=== PATIENT | male | born 1960 | race African-American/Black ===

== ENCOUNTER 2016-08-11 20:38 | Emergency (ER) | payer MEDICARE, MEDICAID ==
[~2016-08-11] VITALS: Ht 170.2 cm; Wt 75.0 kg
[~2016-08-11 20:38] MED LIST: BACL-141 PO; FURO-152 PO; MELO-58 PO; OXTELLAR PO; [UNRECOGNIZED DRUG - CODE] PO
[2016-08-12] MEDS ORDERED: KETOROLAC 60MG/2ML VIAL IM ONE (01:45)
[2016-08-13] MEDS ORDERED: DIPHENHYDRAMINE 50MG CAPSULE PO ONE (20:15)
[2016-08-14 10:00] VITALS: BP 109/72
== END 2016-08-14 10:10 | disposition home or self-care (01) ==
LOC: ER 23:15
DX: S16.1XXA Strain of muscle, fascia and tendon at neck level, initial encounter (principal); S66.911A Strain of unspecified muscle, fascia and tendon at wrist and hand level, right hand, initial encounter; S39.012A Strain of muscle, fascia and tendon of lower back, initial encounter; M25.521 Pain in right elbow; G82.20 Paraplegia, unspecified; M19.90 Unspecified osteoarthritis, unspecified site; F17.210 Nicotine dependence, cigarettes, uncomplicated; Z99.3 Dependence on wheelchair; S34.109S Unspecified injury to unspecified level of lumbar spinal cord, sequela; Z98.1 Arthrodesis status; W05.0XXA Fall from non-moving wheelchair, initial encounter; X93.XXXS Assault by handgun discharge, sequela; Y92.89 Other specified places as the place of occurrence of the external cause
CPT/HCPCS: 71010; 72040; 72070; 72100; 73080; 73110; 96372; 99284; J1885; Q0163

== ENCOUNTER 2016-10-21 01:07 | Inpatient (IN) | payer MEDICARE, MEDICAID ==
[~2016-10-21] VITALS: Ht 170.2 cm; Wt 75.7 kg
[2016-10-21] MEDS ORDERED: SODIUM CHLORIDE 0.9% 1000ML BAG (SEPSIS BOLUS) IV ONE (02:00)
[2016-10-21 02:26] LABS: BASOPHILS % 0.7 % (0.0-2.0); EOSINOPHILS % 4.3 % (0.0-5.0); HEMATOCRIT. 38.3 % (42.0-52.0); HEMOGLOBIN. 12.8 g/dL (14.0-18.0); LYMPHOCYTES % 25.8 % (20.0-50.0); MEAN CORPUSCULAR HEMOGLOBIN 27.8 pg (28.0-32.0); MEAN PLATELET VOLUME 6.2 fl (7.4-10.4); MONOCYTES % 5.5 % (2.0-8.0); NEUTROPHILS % 63.7 % (40.0-76.0); PLATELET 476 x1000/uL (130-400); RED BLOOD CELL COUNT 4.61 mill/uL (4.7-6.1)
[2016-10-21 02:38] LABS: D-DIMER 1.19 mg/L FEU (<0.50); INR 1.1; PARTIAL THROMBOPLASTIN TIME 31.1 sec (24.0-34.0); PROTHROMBIN TIME 11.6 sec
[2016-10-21 02:42] LABS: CARBON DIOXIDE 22 mEq/L (21-32); CHLORIDE 104 mEq/L (98-107); ETHANOL BLOOD 114 mg/dL; TROPONIN I < 0.02 ng/mL (0.00-0.04)
[2016-10-21 04:01] LABS: CLARITY URINE CLEAR (CLEAR); COLOR URINE YELLOW (YELLOW); GLUCOSE URINE NEGATIVE (NEGATIVE); KETONES URINE NEGATIVE (NEGATIVE); LEUKOCYTE ESTERASE URINE TRACE (NEGATIVE); NITRITE URINE NEGATIVE (NEGATIVE); OCCULT BLOOD URINE 1+ (NEGATIVE); PROTEIN URINE NEGATIVE (NEGATIVE); SPECIFIC GRAVITY URINE 1.008 (1.005-1.030); UROBILINOGEN URINE 0.2 E.U./dL (0.2-1.0)
[2016-10-21 04:10] LABS: *AMPHETAMINES SCREEN URINE NEGATIVE (NEGATIVE); *BARBITURATES SCREEN URINE NEGATIVE (NEGATIVE); *BENZODIAZEPINES SCREEN URINE NEGATIVE (NEGATIVE); *COCAINE SCREEN URINE PRESUMTIVE POSITIVE (NEGATIVE); CANNABINOID URINE SCREEN NEGATIVE (NEGATIVE); METHADONE URINE SCREEN NEGATIVE (NEGATIVE); OPIATES URINE SCREEN NEGATIVE (NEGATIVE); PHENCYCLIDINE URINE SCREEN NEGATIVE (NEGATIVE)
[2016-10-21] MEDS ORDERED: IOHEXOL-350 100 ML BOTTLE ONE (06:00)
[2016-10-21] MEDS ORDERED: SODIUM CHLORIDE 0.9% 10ML VIAL ONE (06:00)
[2016-10-21] MEDS ORDERED: LEVOFLOXACIN 750MG PREMIX 150 ML IV ONE (06:30)
[2016-10-21] MEDS ORDERED: ASPIRIN 325MG EC TABLET PO ONE (06:30)
[2016-10-21 09:45] VITALS: BP 114/68
[2016-10-21] MEDS ORDERED: ATOR10TA69 PO (10:07)
[2016-10-21] MEDS ORDERED: DICL100T11 PO (10:09)
[2016-10-21] MEDS ORDERED: OXCA300T31 PO (10:11)
[2016-10-21] MEDS ORDERED: RIBO100T3 PO (10:13)
[2016-10-21] MEDS ORDERED: COLL30OI TP (10:14)
[2016-10-21] MEDS ORDERED: SILV20CR15 TP (10:15)
[2016-10-21] MEDS ORDERED: TAMS0.4C31 PO (10:16)
[2016-10-21] MEDS ORDERED: NICOG BC (10:25)
[2016-10-21] MEDS ORDERED: NICO1PAT15 TP (10:33)
[2016-10-21] MEDS ORDERED: ERTA1VIA2 IV (10:37)
[2016-10-21 12:00] VITALS: BP 117/90
[2016-10-21] MEDS: ENOXAPARIN 40MG/0.4ML SYR SUBCUT SCH (15:03)
[2016-10-21] MEDS ORDERED: DOCUSATE SODIUM 100MG CAPSULE PO PRN (16:00)
[2016-10-21] MEDS ORDERED: IPRATROPIUM/ALBUTEROL 0.5-3(2.5)MG/3ML NEB INH PRN (16:00)
[2016-10-21] MEDS ORDERED: ERTAPENEM SODIUM 1 GM IV SCH (16:00)
[2016-10-21] MEDS ORDERED: CLONIDINE 0.1MG TABLET PO PRN (16:00)
[2016-10-21] MEDS ORDERED: LORAZEPAM 2MG/ML CPJ IV PRN (16:00)
[2016-10-21] MEDS ORDERED: MAGNESIUM/ALUMINUM HYDROXIDE/SIMETHICONE 30ML UDC PO PRN (16:00)
[2016-10-21] MEDS: ATORVASTATIN CALCIUM 10MG TABLET PO SCH (17:32)
[2016-10-21] MEDS: BACLOFEN 10MG TABLET PO SCH (17:32)
[2016-10-21] MEDS: TAMSULOSIN HCL 0.4MG SR CAPSULE PO SCH (17:33)
[2016-10-21] MEDS: FUROSEMIDE 20MG TABLET PO SCH (17:33)
[2016-10-21] MEDS: MEROPENEM 1000MG in NORMAL SALINE 100ML IV SCH (18:20)
[2016-10-21 20:38] VITALS: BP 95/63
[2016-10-21] MEDS ORDERED: ACETAMINOPHEN 650MG/20.3ML UDC PO PRN (21:15)
[2016-10-21] MEDS: ACETAMINOPHEN 325MG TABLET PO PRN (21:35)
[2016-10-21 22:55] LABS: CREATINE KINASE 212 IU/L (39-308)
[2016-10-22 00:02] VITALS: BP 92/59
[2016-10-22] MEDS: MEROPENEM 1000MG in NORMAL SALINE 100ML IV SCH ×2 (01:28→08:56)
[2016-10-22] MEDS: ACETAMINOPHEN 325MG TABLET PO PRN (01:36)
[2016-10-22 04:35] VITALS: BP 96/64
[2016-10-22 06:19] LABS: CARBON DIOXIDE 27 mEq/L (21-32); CHLORIDE 105 mEq/L (98-107); CREATINE KINASE 176 IU/L (39-308); HDL CHOLESTEROL 36 mg/dL (40-59); LDL CHOLESTEROL 58 mg/dL (5-100)
[2016-10-22 06:35] LABS: BASOPHILS % 0.6 % (0.0-2.0); EOSINOPHILS % 7.1 % (0.0-5.0); HEMATOCRIT. 38.7 % (42.0-52.0); HEMOGLOBIN. 12.7 g/dL (14.0-18.0); LYMPHOCYTES % 27.5 % (20.0-50.0); MEAN CORPUSCULAR HEMOGLOBIN 27.4 pg (28.0-32.0); MEAN CORPUSCULAR VOLUME 83.6 fL (80.0-94.0); MEAN PLATELET VOLUME 6.7 fl (7.4-10.4); MONOCYTES % 7.9 % (2.0-8.0); NEUTROPHILS % 56.9 % (40.0-76.0); PLATELET 503 x1000/uL (130-400); RED BLOOD CELL COUNT 4.64 mill/uL (4.7-6.1); RED CELL DISTRIBUTION WIDTH 15.1 % (11.6-14.6)
[2016-10-22 08:00] VITALS: BP 95/69
[2016-10-22] MEDS: ENOXAPARIN 40MG/0.4ML SYR SUBCUT SCH (08:56)
[2016-10-22] MEDS: BACLOFEN 10MG TABLET PO SCH (08:56)
[2016-10-22] MEDS: FUROSEMIDE 20MG TABLET PO SCH (08:56)
[2016-10-22] MEDS: TAMSULOSIN HCL 0.4MG SR CAPSULE PO SCH (09:00)
[2016-10-22 12:00] VITALS: BP 91/57
[2016-10-22 16:00] VITALS: BP 116/88
[2016-10-22] MEDS: ATORVASTATIN CALCIUM 10MG TABLET PO SCH (16:25)
[2016-10-22] MEDS: CEFTRIAXONE 1 G PREMIX 50 ML IV SCH (16:25)
[2016-10-22 20:00] VITALS: BP 109/70
[2016-10-23] VITALS: BP 93/57
[2016-10-23 04:00] VITALS: BP 93/63
[2016-10-23 05:54] LABS: BASOPHILS % 0.7 % (0.0-2.0); EOSINOPHILS % 5.9 % (0.0-5.0); HEMATOCRIT. 37.7 % (42.0-52.0); HEMOGLOBIN. 12.8 g/dL (14.0-18.0); LYMPHOCYTES % 30.8 % (20.0-50.0); MEAN CORPUSCULAR HEMOGLOBIN 28.1 pg (28.0-32.0); MEAN PLATELET VOLUME 6.6 fl (7.4-10.4); MONOCYTES % 5.8 % (2.0-8.0); NEUTROPHILS % 56.8 % (40.0-76.0); PLATELET 484 x1000/uL (130-400); RED BLOOD CELL COUNT 4.54 mill/uL (4.7-6.1); RED CELL DISTRIBUTION WIDTH 15.5 % (11.6-14.6)
[2016-10-23 06:54] LABS: CARBON DIOXIDE 27 mEq/L (21-32); CHLORIDE 108 mEq/L (98-107)
[2016-10-23 08:00] VITALS: BP 95/60
[2016-10-23] MEDS: FUROSEMIDE 20MG TABLET PO SCH (08:56)
[2016-10-23] MEDS: ENOXAPARIN 40MG/0.4ML SYR SUBCUT SCH (08:56)
[2016-10-23] MEDS: BACLOFEN 10MG TABLET PO SCH (08:56)
[2016-10-23] MEDS: TAMSULOSIN HCL 0.4MG SR CAPSULE PO SCH (08:59)
[2016-10-23 12:00] VITALS: BP 101/63
[2016-10-23 16:13] VITALS: BP 105/71
[2016-10-23] MEDS: ATORVASTATIN CALCIUM 10MG TABLET PO SCH (16:15)
[2016-10-23] MEDS: DICLOFENAC SODIUM 50MG EC TABLET PO SCH (16:15)
[2016-10-23] MEDS: CEFTRIAXONE 1 G PREMIX 50 ML IV SCH (16:16)
[2016-10-23] MEDS: OXCARBAZEPINE 300MG TABLET PO SCH ×2 (16:16→21:39)
[2016-10-23 20:00] VITALS: BP 98/79
[2016-10-23] MEDS: ASCORBIC ACID 250 MG TABLET PO SCH (21:39)
[2016-10-24] VITALS: BP 101/67
[2016-10-24] MEDS: ACETAMINOPHEN 325MG TABLET PO PRN ×2 (01:05→20:37)
[2016-10-24 04:00] VITALS: BP 93/60
[2016-10-24] MEDS: OXCARBAZEPINE 300MG TABLET PO SCH ×3 (06:50→20:31)
[2016-10-24 08:00] VITALS: BP 96/59
[2016-10-24] MEDS: DICLOFENAC SODIUM 50MG EC TABLET PO SCH ×2 (08:43→18:03)
[2016-10-24] MEDS: MULTIVITAMINS,THER W-MINERALS TABLET PO SCH (08:43)
[2016-10-24] MEDS: TAMSULOSIN HCL 0.4MG SR CAPSULE PO SCH (08:44)
[2016-10-24] MEDS: ASCORBIC ACID 250 MG TABLET PO SCH ×2 (08:44→20:31)
[2016-10-24] MEDS: BACLOFEN 10MG TABLET PO SCH (08:44)
[2016-10-24] MEDS: ZINC SULFATE 220 MG ( 50 ) CAPSULE PO SCH (08:44)
[2016-10-24] MEDS: FUROSEMIDE 20MG TABLET PO SCH (08:44)
[2016-10-24] MEDS: ENOXAPARIN 40MG/0.4ML SYR SUBCUT SCH (08:45)
[2016-10-24 12:00] VITALS: BP 111/75
[2016-10-24 16:00] VITALS: BP 96/67
[2016-10-24] MEDS ORDERED: IPRATROPIUM/ALBUTEROL 0.5-3(2.5)MG/3ML NEB INH PRN (16:45)
[2016-10-24] MEDS: CEFTRIAXONE 1 G PREMIX 50 ML IV SCH (18:01)
[2016-10-24] MEDS: ATORVASTATIN CALCIUM 10MG TABLET PO SCH (18:02)
[2016-10-24 20:00] VITALS: BP 98/69
[2016-10-24] MEDS: IPRATROPIUM/ALBUTEROL 0.5-3(2.5)MG/3ML NEB HHN SCH (20:52)
[2016-10-25] VITALS: BP 95/59
[2016-10-25 04:00] VITALS: BP 97/66
[2016-10-25 05:41] LABS: BASOPHILS % 0.5 % (0.0-2.0); EOSINOPHILS % 6.2 % (0.0-5.0); HEMATOCRIT. 38.3 % (42.0-52.0); HEMOGLOBIN. 12.4 g/dL (14.0-18.0); LYMPHOCYTES % 30.2 % (20.0-50.0); MEAN CORPUSCULAR HEMOGLOBIN 27.3 pg (28.0-32.0); MEAN CORPUSCULAR VOLUME 84.2 fL (80.0-94.0); MEAN PLATELET VOLUME 6.8 fl (7.4-10.4); MONOCYTES % 4.7 % (2.0-8.0); NEUTROPHILS % 58.4 % (40.0-76.0); PLATELET 443 x1000/uL (130-400); RED BLOOD CELL COUNT 4.55 mill/uL (4.7-6.1); RED CELL DISTRIBUTION WIDTH 15.2 % (11.6-14.6)
[2016-10-25 06:22] LABS: CARBON DIOXIDE 28 mEq/L (21-32); CHLORIDE 108 mEq/L (98-107)
[2016-10-25] MEDS: DICLOFENAC SODIUM 50MG EC TABLET PO SCH ×2 (06:27→17:33)
[2016-10-25] MEDS: OXCARBAZEPINE 300MG TABLET PO SCH ×3 (06:27→20:54)
[2016-10-25 08:00] VITALS: BP 96/66
[2016-10-25] MEDS: ASCORBIC ACID 250 MG TABLET PO SCH ×2 (08:31→20:54)
[2016-10-25] MEDS: ZINC SULFATE 220 MG ( 50 ) CAPSULE PO SCH (08:31)
[2016-10-25] MEDS: FUROSEMIDE 20MG TABLET PO SCH (08:32)
[2016-10-25] MEDS: TAMSULOSIN HCL 0.4MG SR CAPSULE PO SCH (08:32)
[2016-10-25] MEDS: BACLOFEN 10MG TABLET PO SCH (08:32)
[2016-10-25] MEDS: MULTIVITAMINS,THER W-MINERALS TABLET PO SCH (08:32)
[2016-10-25] MEDS: ENOXAPARIN 40MG/0.4ML SYR SUBCUT SCH (08:33)
[2016-10-25] MEDS: IPRATROPIUM/ALBUTEROL 0.5-3(2.5)MG/3ML NEB HHN SCH ×4 (09:09→21:04)
[2016-10-25 12:00] VITALS: BP 105/68
[2016-10-25 16:00] VITALS: BP 111/67
[2016-10-25] MEDS: CEFTRIAXONE 1 G PREMIX 50 ML IV SCH (17:33)
[2016-10-25] MEDS: ATORVASTATIN CALCIUM 10MG TABLET PO SCH (17:33)
[2016-10-25 20:00] VITALS: BP 109/68
[2016-10-26] VITALS: BP 97/67
[2016-10-26 04:00] VITALS: BP 90/63
[2016-10-26] MEDS: DICLOFENAC SODIUM 50MG EC TABLET PO SCH ×2 (06:24→16:36)
[2016-10-26] MEDS: OXCARBAZEPINE 300MG TABLET PO SCH ×3 (06:24→21:00)
[2016-10-26 06:44] LABS: BASOPHILS % 0.9 % (0.0-2.0); HEMATOCRIT. 36.4 % (42.0-52.0); LYMPHOCYTES % 29.8 % (20.0-50.0); MEAN CORPUSCULAR HEMOGLOBIN 27.5 pg (28.0-32.0); MEAN CORPUSCULAR VOLUME 83.2 fL (80.0-94.0); MEAN PLATELET VOLUME 6.7 fl (7.4-10.4); MONOCYTES % 4.4 % (2.0-8.0); NEUTROPHILS % 59.9 % (40.0-76.0); PLATELET 438 x1000/uL (130-400); RED BLOOD CELL COUNT 4.37 mill/uL (4.7-6.1); RED CELL DISTRIBUTION WIDTH 15.4 % (11.6-14.6)
[2016-10-26 07:16] LABS: CARBON DIOXIDE 27 mEq/L (21-32); CHLORIDE 109 mEq/L (98-107)
[2016-10-26 08:00] VITALS: BP 91/61
[2016-10-26] MEDS: ENOXAPARIN 40MG/0.4ML SYR SUBCUT SCH (08:46)
[2016-10-26] MEDS: MULTIVITAMINS,THER W-MINERALS TABLET PO SCH (08:47)
[2016-10-26] MEDS: ASCORBIC ACID 250 MG TABLET PO SCH ×2 (08:47→20:23)
[2016-10-26] MEDS: BACLOFEN 10MG TABLET PO SCH (08:47)
[2016-10-26] MEDS: TAMSULOSIN HCL 0.4MG SR CAPSULE PO SCH (08:47)
[2016-10-26] MEDS: FUROSEMIDE 20MG TABLET PO SCH (08:47)
[2016-10-26] MEDS: ZINC SULFATE 220 MG ( 50 ) CAPSULE PO SCH (08:47)
[2016-10-26] MEDS: IPRATROPIUM/ALBUTEROL 0.5-3(2.5)MG/3ML NEB HHN SCH ×4 (09:09→20:59)
[2016-10-26 12:00] VITALS: BP 98/64
[2016-10-26 16:00] VITALS: BP 112/75
[2016-10-26] MEDS: CEFTRIAXONE 1 G PREMIX 50 ML IV SCH (16:36)
[2016-10-26] MEDS: ATORVASTATIN CALCIUM 10MG TABLET PO SCH (16:38)
[2016-10-26 20:00] VITALS: BP 116/78
[2016-10-26] MEDS: ACETAMINOPHEN 325MG TABLET PO PRN (21:36)
[2016-10-27] VITALS: BP 119/72
[2016-10-27 04:00] VITALS: BP 99/65
[2016-10-27] MEDS: OXCARBAZEPINE 300MG TABLET PO SCH ×2 (06:14→14:52)
[2016-10-27 08:00] VITALS: BP 104/69
[2016-10-27] MEDS: IPRATROPIUM/ALBUTEROL 0.5-3(2.5)MG/3ML NEB HHN SCH ×2 (08:27→13:15)
[2016-10-27] MEDS: ASCORBIC ACID 250 MG TABLET PO SCH (09:19)
[2016-10-27] MEDS: FUROSEMIDE 20MG TABLET PO SCH (09:19)
[2016-10-27] MEDS: ENOXAPARIN 40MG/0.4ML SYR SUBCUT SCH (09:19)
[2016-10-27] MEDS: MULTIVITAMINS,THER W-MINERALS TABLET PO SCH (09:20)
[2016-10-27] MEDS: ZINC SULFATE 220 MG ( 50 ) CAPSULE PO SCH (09:20)
[2016-10-27] MEDS: DICLOFENAC SODIUM 50MG EC TABLET PO SCH (09:20)
[2016-10-27] MEDS: TAMSULOSIN HCL 0.4MG SR CAPSULE PO SCH (09:20)
[2016-10-27] MEDS: BACLOFEN 10MG TABLET PO SCH (09:20)
[2016-10-27 12:00] VITALS: BP 101/59
[2016-10-27 13:38] VITALS: BP 101/59
== END 2016-10-27 16:40 | DRG 871 ==
LOC: ER 01:07 → 5WST 06:25 → EDBEDREQ 06:29 → ENRESERV 07:01
PROVIDERS: ADMIT Internal Medicine; ATTEND Internal Medicine
DX: A41.9 Sepsis, unspecified organism (principal); J96.00 Acute respiratory failure, unspecified whether with hypoxia or hypercapnia; J18.9 Pneumonia, unspecified organism; N39.0 Urinary tract infection, site not specified; G82.20 Paraplegia, unspecified; I10 Essential (primary) hypertension; L89.159 Pressure ulcer of sacral region, unspecified stage; F32.9 Major depressive disorder, single episode, unspecified; M19.90 Unspecified osteoarthritis, unspecified site; R65.20 Severe sepsis without septic shock; F19.90 Other psychoactive substance use, unspecified, uncomplicated; F10.129 Alcohol abuse with intoxication, unspecified; Y90.5 Blood alcohol level of 100-119 mg/100 ml; F14.10 Cocaine abuse, uncomplicated; F17.200 Nicotine dependence, unspecified, uncomplicated; Z59.0 Homelessness; Z79.899 Other long term (current) drug therapy; Z80.0 Family history of malignant neoplasm of digestive organs
CPT/HCPCS: 36415; 70450; 71010; 71275; 80048; 80053; 80061; 80305; 81001; 82550; 82962; 83605; 83735; 83880; 84443; 84484; 85025; 85379; 85610; 85730; 86850; 86900; 87040; 87086; 93005; 93970; 94640; 96361; 96374; 99291; A4216; A6261; C1893; G0482; J0696; J1650; J1956; J2185; J7030; J7040; J7050; J7620; Q9967; A4315

== ENCOUNTER 2016-12-28 21:20 | Emergency (ER) | payer MEDICARE, MEDICAID ==
[~2016-12-28] VITALS: Ht 175.3 cm; Wt 86.0 kg
[~2016-12-28 21:20] MED LIST changes: +ATOR10TA69 PO; +COLL30OI TP; +DICL100T11 PO; +ERTA1VIA2 IV; +NICO1PAT15 TP; +NICOG BC; +OXCA300T31 PO; +RIBO100T3 PO; +SILV20CR15 TP; +TAMS0.4C31 PO
[2016-12-29] MEDS ORDERED: SODIUM CHLORIDE 0.9% 1,000 ML IV ONE (00:17)
[2016-12-29] MEDS ORDERED: IBUPROFEN 600MG TABLET PO STA (00:21)
[2016-12-29 01:08] LABS: BASOPHILS % 0.5 % (0.0-2.0); EOSINOPHILS % 2.7 % (0.0-5.0); HEMATOCRIT. 42.7 % (42.0-52.0); LYMPHOCYTES % 25.2 % (20.0-50.0); MEAN CORPUSCULAR HEMOGLOBIN 27.6 pg (28.0-32.0); MEAN CORPUSCULAR VOLUME 84.2 fL (80.0-94.0); MEAN PLATELET VOLUME 6.7 fl (7.4-10.4); MONOCYTES % 5.7 % (2.0-8.0); NEUTROPHILS % 65.9 % (40.0-76.0); PLATELET 365 x1000/uL (130-400); RED BLOOD CELL COUNT 5.07 mill/uL (4.7-6.1); RED CELL DISTRIBUTION WIDTH 13.9 % (11.6-14.6)
[2016-12-29 01:15] LABS: CHLORIDE 100 mEq/L (98-107)
[2016-12-29 01:24] LABS: CARBON DIOXIDE 18 mEq/L (21-32); ETHANOL BLOOD 108 mg/dL
[2016-12-29 01:30] LABS: CLARITY URINE CLOUDY (CLEAR); COLOR URINE YELLOW (YELLOW); GLUCOSE URINE NEGATIVE (NEGATIVE); KETONES URINE NEGATIVE (NEGATIVE); LEUKOCYTE ESTERASE URINE 3+ (NEGATIVE); NITRITE URINE NEGATIVE (NEGATIVE); OCCULT BLOOD URINE 3+ (NEGATIVE); PH URINE 8.5 (4.5-8.0); PROTEIN URINE 1+ (NEGATIVE); SPECIFIC GRAVITY URINE 1.011 (1.005-1.030); UROBILINOGEN URINE 0.2 E.U./dL (0.2-1.0)
[2016-12-29 01:47] LABS: *AMPHETAMINES SCREEN URINE NEGATIVE (NEGATIVE); *BARBITURATES SCREEN URINE NEGATIVE (NEGATIVE); *BENZODIAZEPINES SCREEN URINE NEGATIVE (NEGATIVE); *COCAINE SCREEN URINE PRESUMTIVE POSITIVE (NEGATIVE); CANNABINOID URINE SCREEN NEGATIVE (NEGATIVE); METHADONE URINE SCREEN NEGATIVE (NEGATIVE); OPIATES URINE SCREEN NEGATIVE (NEGATIVE); PHENCYCLIDINE URINE SCREEN NEGATIVE (NEGATIVE)
[2016-12-29] MEDS ORDERED: SULFAMETHOXAZOLE/TRIMETHOPRIM 800/160MG TABLET PO ONE (02:45)
[2016-12-29 15:02] VITALS: BP 124/84
== END 2016-12-29 15:31 | disposition home or self-care (01) ==
LOC: ER 21:54
DX: R10.9 Unspecified abdominal pain (principal); Y04.2XXA Assault by strike against or bumped into by another person, initial encounter; Y93.89 Activity, other specified; Y92.9 Unspecified place or not applicable; N39.0 Urinary tract infection, site not specified; E16.2 Hypoglycemia, unspecified; F14.10 Cocaine abuse, uncomplicated; F10.10 Alcohol abuse, uncomplicated; G82.20 Paraplegia, unspecified; Z99.3 Dependence on wheelchair; F17.210 Nicotine dependence, cigarettes, uncomplicated
CPT/HCPCS: 36415; 80053; 80305; 81001; 85025; 99284; G0482; J7030

== ENCOUNTER 2017-01-16 22:17 | Inpatient (IN) | payer MEDICARE, MEDICAID ==
[~2017-01-16] VITALS: Ht 167.6 cm; Wt 74.8 kg
[~2017-01-16 22:17] MED LIST changes: -DICL100T11 PO; +DICL100T2 PO; +MELO-106 PO; -MELO-58 PO; +SILV20CR13 TP; -SILV20CR15 TP
[2017-01-16] MEDS ORDERED: HYDROCODONE/ACETAMINOPHEN 5/325MG TABLET PO ONE (22:45)
[2017-01-16] MEDS ORDERED: SODIUM CHLORIDE 0.9% 1000ML BAG (SEPSIS BOLUS) IV ONE (23:00)
[2017-01-16 23:43] LABS: INR 1.1; PARTIAL THROMBOPLASTIN TIME 25.7 sec (23.4-31.0); PROTHROMBIN TIME 11.5 sec (9.4-11.6)
[2017-01-16 23:45] LABS: BASOPHILS % 0.7 % (0.0-2.0); EOSINOPHILS % 6.7 % (0.0-5.0); HEMATOCRIT. 34.1 % (42.0-52.0); HEMOGLOBIN. 11.3 g/dL (14.0-18.0); MEAN CORPUSCULAR HEMOGLOBIN 27.9 pg (28.0-32.0); MEAN CORPUSCULAR VOLUME 84.2 fL (80.0-94.0); MEAN PLATELET VOLUME 6.9 fl (7.4-10.4); MONOCYTES % 4.1 % (2.0-8.0); NEUTROPHILS % 52.5 % (40.0-76.0); PLATELET 278 x1000/uL (130-400); RED BLOOD CELL COUNT 4.05 mill/uL (4.7-6.1); RED CELL DISTRIBUTION WIDTH 14.4 % (11.6-14.6)
[2017-01-16 23:54] LABS: CARBON DIOXIDE 28 mEq/L (21-32); CHLORIDE 109 mEq/L (98-107); TROPONIN I < 0.02 ng/mL (0.00-0.04)
[2017-01-17] MEDS ORDERED: VANCOMYCIN 1 G PREMIX 200 ML IV SCH (00:30)
[2017-01-17] MEDS ORDERED: PIPERACILLIN/TAZ 3.375G PREMIX 50 ML IV ONE (00:30)
[2017-01-17 00:48] LABS: CLARITY URINE CLOUDY (CLEAR); COLOR URINE DARK YELLOW (YELLOW); GLUCOSE URINE NEGATIVE (NEGATIVE); KETONES URINE TRACE (NEGATIVE); LEUKOCYTE ESTERASE URINE 3+ (NEGATIVE); NITRITE URINE POSITIVE (NEGATIVE); OCCULT BLOOD URINE 3+ (NEGATIVE); PH URINE 5.5 (4.5-8.0); PROTEIN URINE 1+ (NEGATIVE); SPECIFIC GRAVITY URINE 1.028 (1.005-1.030)
[2017-01-17] MEDS ORDERED: ACETAMINOPHEN 325MG TABLET PO PRN (01:15)
[2017-01-17] MEDS ORDERED: IPRATROPIUM/ALBUTEROL 0.5-3(2.5)MG/3ML NEB INH PRN (01:15)
[2017-01-17] MEDS ORDERED: ENOXAPARIN 80MG/0.8ML SYR SUBCUT ONE (04:45)
[2017-01-17] MEDS ORDERED: ASPIRIN 325MG EC TABLET PO ONE (04:45)
[2017-01-17 06:45] VITALS: BP 104/62
[2017-01-17] MEDS: SODIUM CHLORIDE 0.9% INJ 3ML FLUSH IVF SCH ×3 (06:45→21:21)
[2017-01-17 08:00] VITALS: BP 109/74
[2017-01-17 09:13] LABS: BASOPHILS % 0.7 % (0.0-2.0); EOSINOPHILS % 7.8 % (0.0-5.0); HEMATOCRIT. 33.5 % (42.0-52.0); HEMOGLOBIN. 11.2 g/dL (14.0-18.0); MEAN CORPUSCULAR HEMOGLOBIN 28.4 pg (28.0-32.0); MEAN CORPUSCULAR VOLUME 84.7 fL (80.0-94.0); MONOCYTES % 4.5 % (2.0-8.0); PLATELET 262 x1000/uL (130-400); RED BLOOD CELL COUNT 3.95 mill/uL (4.7-6.1); RED CELL DISTRIBUTION WIDTH 14.2 % (11.6-14.6)
[2017-01-17] MEDS: ATORVASTATIN CALCIUM 10MG TABLET PO SCH (09:20)
[2017-01-17] MEDS: FUROSEMIDE 20MG TABLET PO SCH (09:20)
[2017-01-17] MEDS: TAMSULOSIN HCL 0.4MG SR CAPSULE PO SCH (09:20)
[2017-01-17] MEDS: OXCARBAZEPINE 300MG TABLET PO SCH ×3 (09:21→18:17)
[2017-01-17] MEDS: FAMOTIDINE 20MG TABLET PO SCH ×2 (09:21→21:08)
[2017-01-17 09:27] LABS: CARBON DIOXIDE 27 mEq/L (21-32); CHLORIDE 111 mEq/L (98-107); HDL CHOLESTEROL 42 mg/dL (40-59); LDL CHOLESTEROL 45 mg/dL (5-100)
[2017-01-17] MEDS ORDERED: IOHEXOL-350 100 ML BOTTLE ONE (09:59)
[2017-01-17] MEDS ORDERED: SODIUM CHLORIDE 0.9% 10ML VIAL ONE (09:59)
[2017-01-17 12:00] VITALS: BP 105/66
[2017-01-17 16:00] VITALS: BP 107/80
[2017-01-17] MEDS: BACLOFEN 10MG TABLET PO SCH (18:18)
[2017-01-17 20:00] VITALS: BP 120/83
[2017-01-17] MEDS ORDERED: TEMAZEPAM 15MG CAPSULE PO PRN (21:00)
[2017-01-18] VITALS: BP 101/60
[2017-01-18 04:00] VITALS: BP 103/73
[2017-01-18] MEDS: SODIUM CHLORIDE 0.9% INJ 3ML FLUSH IVF SCH ×3 (06:02→21:16)
[2017-01-18 08:00] VITALS: BP 139/84
[2017-01-18] MEDS ORDERED: ENOXAPARIN 40MG/0.4ML SYR SUBCUT SCH (09:00)
[2017-01-18] MEDS: TAMSULOSIN HCL 0.4MG SR CAPSULE PO SCH (09:16)
[2017-01-18] MEDS: OXCARBAZEPINE 300MG TABLET PO SCH ×3 (09:16→17:19)
[2017-01-18] MEDS: ENOXAPARIN 80MG/0.8ML SYR SUBCUT SCH ×2 (09:17→21:16)
[2017-01-18] MEDS: FUROSEMIDE 20MG TABLET PO SCH (09:17)
[2017-01-18] MEDS: BACLOFEN 10MG TABLET PO SCH ×2 (09:17→17:16)
[2017-01-18] MEDS: FAMOTIDINE 20MG TABLET PO SCH ×2 (09:17→21:16)
[2017-01-18] MEDS: ATORVASTATIN CALCIUM 10MG TABLET PO SCH (09:17)
[2017-01-18 12:00] VITALS: BP 116/75
[2017-01-18] MEDS ORDERED: LEVOFLOXACIN 500MG PREMIX 100 ML IV SCH ×2 (13:45→17:00)
[2017-01-18] MEDS: HYDROCODONE/ACETAMINOPHEN 5/325MG TABLET PO PRN ×2 (15:05→21:29)
[2017-01-18 16:00] VITALS: BP 108/57
[2017-01-18 16:20] LABS: CREATINE KINASE 180 IU/L (39-308); TROPONIN I < 0.02 ng/mL (0.00-0.04)
[2017-01-18 20:00] VITALS: BP 118/79
[2017-01-19] VITALS: BP 109/68
[2017-01-19 04:00] VITALS: BP 120/73
[2017-01-19] MEDS: SODIUM CHLORIDE 0.9% INJ 3ML FLUSH IVF SCH ×2 (06:00→13:28)
[2017-01-19 08:00] VITALS: BP 141/88
[2017-01-19] MEDS: ATORVASTATIN CALCIUM 10MG TABLET PO SCH (09:17)
[2017-01-19] MEDS: FUROSEMIDE 20MG TABLET PO SCH (09:17)
[2017-01-19] MEDS: TAMSULOSIN HCL 0.4MG SR CAPSULE PO SCH (09:18)
[2017-01-19] MEDS: FAMOTIDINE 20MG TABLET PO SCH (09:18)
[2017-01-19] MEDS: BACLOFEN 10MG TABLET PO SCH (09:18)
[2017-01-19] MEDS: OXCARBAZEPINE 300MG TABLET PO SCH ×2 (09:18→12:02)
[2017-01-19] MEDS: ENOXAPARIN 80MG/0.8ML SYR SUBCUT SCH (09:19)
[2017-01-19] MEDS ORDERED: RIVAROXABAN 15 MG TABLET PO SCH (11:30)
[2017-01-19 12:00] VITALS: BP 116/88
[2017-01-19 16:00] VITALS: BP 98/56
[2017-01-19 16:42] VITALS: BP 95/56
== END 2017-01-19 18:16 | DRG 562 ==
LOC: ER 22:46 → OBSVTOIN 01-17 01:06 → INTOOBSV 01-17 01:06 → 5WST 01-17 01:06 → ENRESERV 01-17 02:56
PROVIDERS: ADMIT Ophthalmology; ATTEND Ophthalmology
DX: S52.022A Displaced fracture of olecranon process without intraarticular extension of left ulna, initial encounter for closed fracture (principal); I26.99 Other pulmonary embolism without acute cor pulmonale; J18.9 Pneumonia, unspecified organism; G82.20 Paraplegia, unspecified; J44.0 Chronic obstructive pulmonary disease with (acute) lower respiratory infection; N39.0 Urinary tract infection, site not specified; S52.042A Displaced fracture of coronoid process of left ulna, initial encounter for closed fracture; I10 Essential (primary) hypertension; W05.0XXA Fall from non-moving wheelchair, initial encounter; K21.9 Gastro-esophageal reflux disease without esophagitis; M70.22 Olecranon bursitis, left elbow; M77.9 Enthesopathy, unspecified; M89.9 Disorder of bone, unspecified; Y93.89 Activity, other specified; Y92.89 Other specified places as the place of occurrence of the external cause; Z80.9 Family history of malignant neoplasm, unspecified
CPT/HCPCS: 36415; 70450; 71010; 71275; 73080; 80048; 80061; 81001; 82550; 82553; 83605; 83880; 84443; 84484; 85025; 85610; 85730; 87040; 87077; 87086; 87186; 93005; 93306; 96361; 96365; 96367; 96372; 99285; A4216; A6261; G0378; J1650; J1956; J2543; J3370; J7030; J7050; J7620; Q9967

== ENCOUNTER 2017-02-20 08:31 | Emergency (ER) | payer MEDICARE, MEDICAID ==
[~2017-02-20] VITALS: Ht 170.2 cm; Wt 77.0 kg
[2017-02-20] MEDS ORDERED: IBUPROFEN 600MG TABLET PO ONE (13:00)
[2017-02-21 07:35] VITALS: BP 136/93
== END 2017-02-21 09:45 | disposition home or self-care (01) ==
LOC: ER 09:34
DX: M54.89 Other dorsalgia (principal); K21.9 Gastro-esophageal reflux disease without esophagitis; I10 Essential (primary) hypertension; M19.90 Unspecified osteoarthritis, unspecified site; M25.519 Pain in unspecified shoulder; Z87.828 Personal history of other (healed) physical injury and trauma; Z59.0 Homelessness; W05.0XXA Fall from non-moving wheelchair, initial encounter; Y93.89 Activity, other specified; Y92.89 Other specified places as the place of occurrence of the external cause
CPT/HCPCS: 72070; 82542; 99285

== ENCOUNTER 2017-06-21 19:57 | Emergency (ER) | payer MEDICARE, MEDICAID ==
[~2017-06-21] VITALS: Ht 175.3 cm; Wt 66.0 kg
[2017-06-22 01:02] LABS: BASOPHILS % 0.4 % (0.0-2.0); EOSINOPHILS % 2.7 % (0.0-5.0); HEMATOCRIT. 40.2 % (42.0-52.0); HEMOGLOBIN. 13.1 g/dL (14.0-18.0); LYMPHOCYTES % 24.3 % (20.0-50.0); MEAN CORPUSCULAR HEMOGLOBIN 26.7 pg (28.0-32.0); MEAN CORPUSCULAR VOLUME 82.1 fL (80.0-94.0); MEAN PLATELET VOLUME 6.8 fl (7.4-10.4); MONOCYTES % 4.9 % (2.0-8.0); NEUTROPHILS % 67.7 % (40.0-76.0); PLATELET 351 x1000/uL (130-400); RED CELL DISTRIBUTION WIDTH 16.1 % (11.6-14.6)
[2017-06-22 01:06] LABS: CHLORIDE 105 mEq/L (98-107)
[2017-06-22 01:08] LABS: INR 1.1; PROTHROMBIN TIME 11.7 sec (9.4-11.6)
[2017-06-22 02:54] LABS: CLARITY URINE CLOUDY (CLEAR); COLOR URINE YELLOW (YELLOW); KETONES URINE NEGATIVE (NEGATIVE); LEUKOCYTE ESTERASE URINE 3+ (NEGATIVE); NITRITE URINE NEGATIVE (NEGATIVE); OCCULT BLOOD URINE 1+ (NEGATIVE); PH URINE 6.5 (4.5-8.0); PROTEIN URINE NEGATIVE (NEGATIVE); SPECIFIC GRAVITY URINE 1.008 (1.005-1.030); UROBILINOGEN URINE 0.2 E.U./dL (0.2-1.0)
[2017-06-22 08:12] VITALS: BP 117/80
== END 2017-06-22 09:38 | disposition home or self-care (01) ==
LOC: ER 20:42
DX: N12 Tubulo-interstitial nephritis, not specified as acute or chronic (principal); R11.0 Nausea; I10 Essential (primary) hypertension; K21.9 Gastro-esophageal reflux disease without esophagitis; G82.20 Paraplegia, unspecified; Z93.6 Other artificial openings of urinary tract status
CPT/HCPCS: 36415; 71045; 81001; 99285

== ENCOUNTER 2018-01-17 07:35 | Emergency (ER) | payer MEDICARE, MEDICAID ==
[~2018-01-17] VITALS: Ht 170.2 cm; Wt 78.0 kg
[~2018-01-17 07:35] MED LIST changes: -COLL30OI TP; -ERTA1VIA2 IV; -MELO-106 PO; -NICOG BC; -OXTELLAR PO; -RIBO100T3 PO; -[UNRECOGNIZED DRUG - CODE] PO
[2018-01-17 08:55] LABS: BASOPHILS % 0.5 % (0.0-2.0); HEMATOCRIT. 42.2 % (42.0-52.0); HEMOGLOBIN. 13.9 g/dL (14.0-18.0); LYMPHOCYTES % 24.4 % (20.0-50.0); MEAN CORPUSCULAR HEMOGLOBIN 26.8 pg (28.0-32.0); MEAN CORPUSCULAR VOLUME 81.6 fL (80.0-94.0); MEAN PLATELET VOLUME 6.7 fl (7.4-10.4); MONOCYTES % 6.6 % (2.0-8.0); NEUTROPHILS % 66.5 % (40.0-76.0); PLATELET 357 x1000/uL (130-400); RED BLOOD CELL COUNT 5.18 mill/uL (4.7-6.1); RED CELL DISTRIBUTION WIDTH 18.7 % (11.6-14.6)
[2018-01-17 09:02] LABS: CHLORIDE 105 mEq/L (98-107)
[2018-01-17 09:04] LABS: INR 1.1; PROTHROMBIN TIME 10.7 sec (9.1-11.1)
[2018-01-17 09:05] LABS: ETHANOL BLOOD 76 mg/dL
[2018-01-17 11:14] LABS: CLARITY URINE CLOUDY (CLEAR); COLOR URINE YELLOW (YELLOW); KETONES URINE NEGATIVE (NEGATIVE); LEUKOCYTE ESTERASE URINE 3+ (NEGATIVE); NITRITE URINE POSITIVE (NEGATIVE); OCCULT BLOOD URINE 2+ (NEGATIVE); PROTEIN URINE 1+ (NEGATIVE); SPECIFIC GRAVITY URINE 1.007 (1.005-1.030); UROBILINOGEN URINE 0.2 E.U./dL (0.2-1.0)
[2018-01-17] MEDS ORDERED: CEFTRIAXONE 1 G PREMIX 50 ML IV ONE (11:45)
[2018-01-17 11:47] LABS: *AMPHETAMINES SCREEN URINE NEGATIVE (NEGATIVE); *BARBITURATES SCREEN URINE NEGATIVE (NEGATIVE); *BENZODIAZEPINES SCREEN URINE NEGATIVE (NEGATIVE); *COCAINE SCREEN URINE PRESUMTIVE POSITIVE (NEGATIVE); CANNABINOID URINE SCREEN NEGATIVE (NEGATIVE); PHENCYCLIDINE URINE SCREEN PRESUMTIVE POSITIVE (NEGATIVE)
[2018-01-17 11:48] LABS: METHADONE URINE SCREEN NEGATIVE (NEGATIVE); OPIATES URINE SCREEN NEGATIVE (NEGATIVE)
[2018-01-18 13:37] VITALS: BP 122/76
== END 2018-01-18 13:55 | disposition home or self-care (01) ==
LOC: ER 07:35
DX: N39.0 Urinary tract infection, site not specified (principal); I10 Essential (primary) hypertension; F17.200 Nicotine dependence, unspecified, uncomplicated; F19.10 Other psychoactive substance abuse, uncomplicated; G82.20 Paraplegia, unspecified; Z79.899 Other long term (current) drug therapy
CPT/HCPCS: 36415; 71045; 80053; 80305; 81003; 85025; 85610; 85651; 87077; 87086; 87186; 93005; 96365; 99285; G0482; J0696

== ENCOUNTER 2019-01-13 17:48 | Inpatient (IN) | payer MEDICARE, MEDICAID ==
[~2019-01-13] VITALS: Ht 170.2 cm; Wt 75.3 kg
[2019-01-13] MEDS ORDERED: ONDANSETRON HCL 4MG/2ML INJ IV STA (22:52)
[2019-01-13] MEDS ORDERED: SODIUM CHLORIDE 0.9% 1,000 ML IV ONE (22:52)
[2019-01-13] MEDS ORDERED: MORPHINE SULFATE 4 MG/ML CPJ (NOT FOR IM USE) IV STA (22:52)
[2019-01-13 23:40] LABS: BASOPHILS % 0.3 % (0.0-2.0); CHLORIDE 111 mEq/L (98-107); EOSINOPHILS % 3.4 % (0.0-5.0); HEMATOCRIT. 40.6 % (42.0-52.0); HEMOGLOBIN. 13.4 g/dL (14.0-18.0); MEAN CORPUSCULAR HEMOGLOBIN 28.4 pg (28.0-32.0); MEAN CORPUSCULAR VOLUME 85.9 fL (80.0-94.0); MEAN PLATELET VOLUME 6.9 fl (7.4-10.4); MONOCYTES % 7.6 % (2.0-8.0); NEUTROPHILS % 69.7 % (40.0-76.0); PLATELET 330 x1000/uL (130-400); RED BLOOD CELL COUNT 4.73 mill/uL (4.7-6.1); RED CELL DISTRIBUTION WIDTH 14.2 % (11.6-14.6)
[2019-01-13 23:45] LABS: INR 1.1; PROTHROMBIN TIME 11.4 sec (9.6-11.0)
[2019-01-14] MEDS ORDERED: CEFTRIAXONE 1 G PREMIX 50 ML IV ONE (02:15)
[2019-01-14] MEDS ORDERED: METRONIDAZOLE 500 MG PREMIX 100 ML IV ONE (02:15)
[2019-01-14 04:00] VITALS: BP 96/68
[2019-01-14] MEDS ORDERED: DIPHENHYDRAMINE 50MG/ML VIAL IV PRN (06:45)
[2019-01-14] MEDS ORDERED: NA PHOS,M-B/NA PHOS,DI-BA ENEMA 118ML PR PRN (06:45)
[2019-01-14] MEDS ORDERED: ONDANSETRON HCL 4MG/2ML INJ IV PRN (06:45)
[2019-01-14] MEDS ORDERED: IPRATROPIUM/ALBUTEROL 0.5-3(2.5)MG/3ML NEB NEB PRN (06:45)
[2019-01-14] MEDS ORDERED: LORAZEPAM 2MG/ML CPJ IV PRN (06:45)
[2019-01-14] MEDS ORDERED: ACETAMINOPHEN 325MG TABLET PO PRN (06:45)
[2019-01-14] MEDS ORDERED: HYDROCODONE/ACETAMINOPHEN 5/325MG TABLET PO PRN (06:45)
[2019-01-14] MEDS ORDERED: GUAIFENESIN 200MG/10ML SUGAR FREE UDC PO PRN (06:45)
[2019-01-14] MEDS ORDERED: MORPHINE SULFATE 2 MG/ML CPJ (NOT FOR IM USE) IV PRN (06:45)
[2019-01-14 08:00] VITALS: BP 119/72
[2019-01-14] MEDS ORDERED: DOCUSATE SODIUM 100MG CAPSULE PO PRN (08:00)
[2019-01-14] MEDS ORDERED: MAGNESIUM/ALUMINUM HYDROXIDE/SIMETHICONE 30ML UDC PO PRN (09:00)
[2019-01-14] MEDS: SODIUM CHLORIDE 0.45% 1,000 ML IV SCH (09:06)
[2019-01-14] MEDS: ENOXAPARIN 40MG/0.4ML SYR SUBCUT SCH (09:07)
[2019-01-14] MEDS: LEVOFLOXACIN 500MG PREMIX 100 ML IV SCH (09:10)
[2019-01-14] MEDS: METRONIDAZOLE 500 MG PREMIX 100 ML IV SCH ×2 (10:26→17:28)
[2019-01-14 11:12] LABS: CHLORIDE 113 mEq/L (98-107)
[2019-01-14 12:00] VITALS: BP 106/75
[2019-01-14 16:00] VITALS: BP 128/92
[2019-01-14] MEDS: CLONIDINE 0.1MG TABLET PO PRN (17:29)
[2019-01-15] VITALS: BP 107/71
[2019-01-15] MEDS: METRONIDAZOLE 500 MG PREMIX 100 ML IV SCH ×3 (01:18→17:13)
[2019-01-15] MEDS: SODIUM CHLORIDE 0.45% 1,000 ML IV SCH ×2 (01:19→15:59)
[2019-01-15 04:00] VITALS: BP 117/73
[2019-01-15 07:02] LABS: CHLORIDE 110 mEq/L (98-107)
[2019-01-15 07:10] LABS: LDL CHOLESTEROL 45 mg/dL (5-100)
[2019-01-15 07:11] LABS: T4 FREE 1.06 ng/dL (0.76-1.46)
[2019-01-15 07:13] LABS: HDL CHOLESTEROL 36 mg/dL (40-59)
[2019-01-15 08:00] VITALS: BP 120/84
[2019-01-15] MEDS: ENOXAPARIN 40MG/0.4ML SYR SUBCUT SCH (08:19)
[2019-01-15] MEDS: LEVOFLOXACIN 500MG PREMIX 100 ML IV SCH (08:20)
[2019-01-15 12:00] VITALS: BP 139/84
[2019-01-15 12:50] LABS: BASOPHILS % 0.7 % (0.0-2.0); EOSINOPHILS % 5.2 % (0.0-5.0); HEMOGLOBIN. 13.6 g/dL (14.0-18.0); LYMPHOCYTES % 28.9 % (20.0-50.0); MEAN CORPUSCULAR HEMOGLOBIN 28.2 pg (28.0-32.0); MEAN CORPUSCULAR VOLUME 86.9 fL (80.0-94.0); MEAN PLATELET VOLUME 7.2 fl (7.4-10.4); MONOCYTES % 5.7 % (2.0-8.0); NEUTROPHILS % 59.5 % (40.0-76.0); PLATELET 275 x1000/uL (130-400); RED BLOOD CELL COUNT 4.83 mill/uL (4.7-6.1); RED CELL DISTRIBUTION WIDTH 13.9 % (11.6-14.6)
[2019-01-15] MEDS: CLONIDINE 0.1MG TABLET PO PRN (15:58)
[2019-01-15 16:00] VITALS: BP 150/95
[2019-01-15 20:00] VITALS: BP 130/85
[2019-01-16] VITALS: BP 125/83
[2019-01-16] MEDS: METRONIDAZOLE 500 MG PREMIX 100 ML IV SCH ×2 (02:50→10:44)
[2019-01-16 04:00] VITALS: BP 120/78
[2019-01-16 08:00] VITALS: BP 125/92
[2019-01-16] MEDS: LEVOFLOXACIN 500MG PREMIX 100 ML IV SCH (08:37)
[2019-01-16] MEDS: ENOXAPARIN 40MG/0.4ML SYR SUBCUT SCH (08:37)
[2019-01-16] MEDS: SODIUM CHLORIDE 0.45% 1,000 ML IV SCH (08:38)
[2019-01-16 12:00] VITALS: BP 124/68
[2019-01-16 14:33] VITALS: BP 126/62
== END 2019-01-16 16:09 | disposition home or self-care (01) | DRG 372 ==
LOC: ER 17:48 → 6EST 01-14 02:23 → EDBEDREQSVC 01-14 02:26 → EDBEDREQ 01-14 02:26 → EDBEDREQDT 01-14 02:26 → EDBEDREQTM 01-14 02:26 → ENRESERV 01-14 03:00
PROVIDERS: ADMIT Internal Medicine; ATTEND Internal Medicine
DX: A04.72 Enterocolitis due to Clostridium difficile, not specified as recurrent (principal); G82.20 Paraplegia, unspecified; R65.10 Systemic inflammatory response syndrome (SIRS) of non-infectious origin without acute organ dysfunction; I10 Essential (primary) hypertension; E86.0 Dehydration; Z79.899 Other long term (current) drug therapy
CPT/HCPCS: 36415; 74176; 80048; 80061; 84439; 84443; 87015; 87045; 87427; 87449; 87493; 89055; 96365; 99285; J0696; J1650; J1956; J2270; J2405; J3490; J7030

== ENCOUNTER 2020-12-11 03:17 | Inpatient (IN) | payer MEDICARE, MEDICAID ==
[~2020-12-11] VITALS: Ht 170.2 cm; Wt 80.7 kg
[~2020-12-11 03:17] MED LIST changes: +NITR100C MT
[2020-12-11] MEDS ORDERED: SODIUM CHLORIDE 0.9% 1,000 ML IV ONE ×2 (04:00→06:00)
[2020-12-11 04:33] LABS: CHLORIDE 112 mEq/L (98-107)
[2020-12-11 04:37] LABS: ETHANOL BLOOD 147 mg/dL
[2020-12-11 04:39] LABS: BASOPHILS % 0.2 % (0.0-2.0); EOSINOPHILS % 0.2 % (0.0-5.0); HEMATOCRIT. 43.1 % (42.0-52.0); HEMOGLOBIN. 13.4 g/dL (14.0-18.0); LYMPHOCYTES % 11.6 % (20.0-50.0); MEAN CORPUSCULAR HEMOGLOBIN 28.2 pg (28.0-32.0); MEAN CORPUSCULAR VOLUME 91.1 fL (80.0-94.0); MEAN PLATELET VOLUME 6.8 fl (7.4-10.4); MONOCYTES % 9.1 % (2.0-8.0); NEUTROPHILS % 78.9 % (40.0-76.0); PLATELET 291 x1000/uL (130-400); RED BLOOD CELL COUNT 4.73 mill/uL (4.7-6.1); RED CELL DISTRIBUTION WIDTH 15.9 % (11.6-14.6)
[2020-12-11] MEDS ORDERED: PIPERACILLIN/TAZ 3.375G PREMIX 50 ML IV ONE (06:00)
[2020-12-11] MEDS ORDERED: VANCOMYCIN 1 G PREMIX 200 ML IV ONE (06:00)
[2020-12-11] MEDS ORDERED: MAGNESIUM/ALUMINUM HYDROXIDE/SIMETHICONE 30ML UDC PO PRN (07:00)
[2020-12-11] MEDS ORDERED: HYDROCODONE/ACETAMINOPHEN 10/325MG TABLET PO PRN (07:00)
[2020-12-11] MEDS ORDERED: LORAZEPAM 2MG/ML CPJ IV PRN (07:00)
[2020-12-11] MEDS ORDERED: ONDANSETRON HCL 4MG/2ML INJ IV PRN (07:00)
[2020-12-11] MEDS ORDERED: IPRATROPIUM/ALBUTEROL 0.5-3(2.5)MG/3ML NEB HHN PRN (07:00)
[2020-12-11] MEDS ORDERED: HYDRALAZINE 20MG/ML VIAL IV PRN (07:00)
[2020-12-11] MEDS ORDERED: GUAIFENESIN 200MG/10ML SUGAR FREE UDC PO PRN (07:00)
[2020-12-11] MEDS ORDERED: DOCUSATE SODIUM 100MG CAPSULE PO PRN (07:00)
[2020-12-11] MEDS ORDERED: DIPHENHYDRAMINE 50MG/ML VIAL IV PRN (07:00)
[2020-12-11] MEDS ORDERED: CLONIDINE 0.1MG TABLET PO PRN (07:00)
[2020-12-11] MEDS ORDERED: NALOXONE HCL 0.4MG/ML VIAL IV PRN (07:15)
[2020-12-11] MEDS: ENOXAPARIN 40MG/0.4ML SYR SUBCUT SCH (10:47)
[2020-12-11] MEDS: SODIUM CHLORIDE 0.9% INJ 3ML FLUSH IVF SCH ×2 (14:12→22:38)
[2020-12-12 00:15] VITALS: BP 117/72
[2020-12-12] MEDS ORDERED: LOSA100T32 PO (03:54)
[2020-12-12] MEDS ORDERED: DICL50TA7 PO (03:54)
[2020-12-12 04:00] VITALS: BP 118/66
[2020-12-12] MEDS: SODIUM CHLORIDE 0.9% INJ 3ML FLUSH IVF SCH ×3 (06:09→21:06)
[2020-12-12] MEDS ORDERED: *PATIENT'S OWN MEDICATION STORAGE XX SCH (06:30)
[2020-12-12 06:50] LABS: BASOPHILS % 0.4 % (0.0-2.0); EOSINOPHILS % 2.2 % (0.0-5.0); HEMATOCRIT. 37.6 % (42.0-52.0); HEMOGLOBIN. 12.3 g/dL (14.0-18.0); LYMPHOCYTES % 11.8 % (20.0-50.0); MEAN CORPUSCULAR HEMOGLOBIN 27.8 pg (28.0-32.0); MEAN CORPUSCULAR VOLUME 84.8 fL (80.0-94.0); MEAN PLATELET VOLUME 7.2 fl (7.4-10.4); MONOCYTES % 9.7 % (2.0-8.0); NEUTROPHILS % 75.9 % (40.0-76.0); PLATELET 244 x1000/uL (130-400); RED BLOOD CELL COUNT 4.44 mill/uL (4.7-6.1); RED CELL DISTRIBUTION WIDTH 15.2 % (11.6-14.6)
[2020-12-12 06:58] LABS: CHLORIDE 112 mEq/L (98-107)
[2020-12-12 08:01] VITALS: BP 106/81
[2020-12-12] MEDS: ENOXAPARIN 40MG/0.4ML SYR SUBCUT SCH (09:05)
[2020-12-12 12:16] VITALS: BP 157/84
[2020-12-12 16:01] LABS: CLARITY URINE TURBID (CLEAR); COLOR URINE YELLOW (YELLOW); KETONES URINE NEGATIVE (NEGATIVE); LEUKOCYTE ESTERASE URINE 3+ (NEGATIVE); NITRITE URINE POSITIVE (NEGATIVE); OCCULT BLOOD URINE 3+ (NEGATIVE); PH URINE 5.5 (4.5-8.0); PROTEIN URINE 2+ (NEGATIVE); SPECIFIC GRAVITY URINE 1.027 (1.005-1.030); UROBILINOGEN URINE 0.2 E.U./dL (0.2-1.0)
[2020-12-12 16:32] VITALS: BP 151/85
[2020-12-12] MEDS: ACETAMINOPHEN 325MG TABLET PO PRN (17:27)
[2020-12-12 20:00] VITALS: BP 121/70
[2020-12-13] VITALS: BP 129/86
[2020-12-13 04:00] VITALS: BP 121/82
[2020-12-13] MEDS: SODIUM CHLORIDE 0.9% INJ 3ML FLUSH IVF SCH ×2 (05:35→14:36)
[2020-12-13] MEDS: ACETAMINOPHEN 325MG TABLET PO PRN (05:35)
[2020-12-13 08:23] VITALS: BP 100/53
[2020-12-13] MEDS: ENOXAPARIN 40MG/0.4ML SYR SUBCUT SCH (09:26)
[2020-12-13] MEDS: SODIUM CHLORIDE 0.45% 1,000 ML IV SCH (10:30)
[2020-12-13 11:53] VITALS: BP 116/85
[2020-12-13] MEDS: PIPERACILLIN/TAZOBACTAM 3.375 G in DEXTROSE 5% WATER 50 ML IV SCH ×2 (14:36→20:48)
[2020-12-13 16:06] VITALS: BP 120/75
[2020-12-13 20:00] VITALS: BP 134/87
[2020-12-14] VITALS: BP 142/89
[2020-12-14] MEDS: ACETAMINOPHEN 325MG TABLET PO PRN (00:33)
[2020-12-14] MEDS: SODIUM CHLORIDE 0.9% INJ 3ML FLUSH IVF SCH ×4 (00:35→22:24)
[2020-12-14 04:00] VITALS: BP 132/87
[2020-12-14] MEDS: PIPERACILLIN/TAZOBACTAM 3.375 G in DEXTROSE 5% WATER 50 ML IV SCH (04:57)
[2020-12-14] MEDS: SODIUM CHLORIDE 0.45% 1,000 ML IV SCH (06:57)
[2020-12-14 07:48] LABS: BASOPHILS % 0.3 % (0.0-2.0); EOSINOPHILS % 4.5 % (0.0-5.0); HEMATOCRIT. 36.5 % (42.0-52.0); HEMOGLOBIN. 12.1 g/dL (14.0-18.0); MEAN CORPUSCULAR VOLUME 84.6 fL (80.0-94.0); MEAN PLATELET VOLUME 7.7 fl (7.4-10.4); MONOCYTES % 9.4 % (2.0-8.0); NEUTROPHILS % 67.8 % (40.0-76.0); PLATELET 313 x1000/uL (130-400); RED BLOOD CELL COUNT 4.31 mill/uL (4.7-6.1); RED CELL DISTRIBUTION WIDTH 14.6 % (11.6-14.6)
[2020-12-14 07:51] LABS: CHLORIDE 108 mEq/L (98-107)
[2020-12-14 08:00] VITALS: BP 91/61
[2020-12-14] MEDS: ENOXAPARIN 40MG/0.4ML SYR SUBCUT SCH (08:43)
[2020-12-14 12:00] VITALS: BP 92/51
[2020-12-14] MEDS: OXCARBAZEPINE 300MG TABLET PO SCH ×2 (14:00→22:25)
[2020-12-14] MEDS: MEROPENEM 1,000 MG in SODIUM CHLORIDE 0.9% 100 ML IV SCH ×2 (14:24→22:23)
[2020-12-14] MEDS: TAMSULOSIN HCL 0.4MG SR CAPSULE PO SCH (14:25)
[2020-12-14] MEDS: LOSARTAN POTASSIUM 100 MG TABLET PO SCH (14:31)
[2020-12-14 16:00] VITALS: BP 134/87
[2020-12-14] MEDS: DICLOFENAC SODIUM 50 MG DR TABLET PO SCH (16:54)
[2020-12-14 20:00] VITALS: BP 160/88
[2020-12-15] VITALS: BP 103/72
[2020-12-15] MEDS: SODIUM CHLORIDE 0.45% 1,000 ML IV SCH ×2 (01:32→21:02)
[2020-12-15 04:00] VITALS: BP 92/57
[2020-12-15 06:04] LABS: BASOPHILS % 0.3 % (0.0-2.0); EOSINOPHILS % 2.7 % (0.0-5.0); HEMATOCRIT. 36.7 % (42.0-52.0); HEMOGLOBIN. 12.1 g/dL (14.0-18.0); LYMPHOCYTES % 20.3 % (20.0-50.0); MEAN CORPUSCULAR HEMOGLOBIN 28.2 pg (28.0-32.0); MEAN CORPUSCULAR VOLUME 85.3 fL (80.0-94.0); MEAN PLATELET VOLUME 7.5 fl (7.4-10.4); MONOCYTES % 11.7 % (2.0-8.0); PLATELET 296 x1000/uL (130-400); RED CELL DISTRIBUTION WIDTH 14.4 % (11.6-14.6)
[2020-12-15 06:23] LABS: CHLORIDE 108 mEq/L (98-107)
[2020-12-15] MEDS: MEROPENEM 1,000 MG in SODIUM CHLORIDE 0.9% 100 ML IV SCH ×3 (06:39→21:00)
[2020-12-15] MEDS: ACETAMINOPHEN 325MG TABLET PO PRN (06:39)
[2020-12-15] MEDS: OXCARBAZEPINE 300MG TABLET PO SCH ×3 (06:39→21:01)
[2020-12-15] MEDS: SODIUM CHLORIDE 0.9% INJ 3ML FLUSH IVF SCH ×3 (06:39→21:01)
[2020-12-15 08:00] VITALS: BP 103/53
[2020-12-15] MEDS: LOSARTAN POTASSIUM 100 MG TABLET PO SCH (09:00)
[2020-12-15] MEDS: ENOXAPARIN 40MG/0.4ML SYR SUBCUT SCH (09:29)
[2020-12-15] MEDS: TAMSULOSIN HCL 0.4MG SR CAPSULE PO SCH (09:33)
[2020-12-15] MEDS: DICLOFENAC SODIUM 50 MG DR TABLET PO SCH ×2 (09:35→16:51)
[2020-12-15 12:00] VITALS: BP 100/70
[2020-12-15 16:00] VITALS: BP 141/89
[2020-12-15 20:00] VITALS: BP 111/66
[2020-12-16] VITALS (7 sets, daily range): BP systolic 103–130; BP diastolic 67–89
[2020-12-16] MEDS: MEROPENEM 1,000 MG in SODIUM CHLORIDE 0.9% 100 ML IV SCH ×3 (05:16→21:08)
[2020-12-16] MEDS: OXCARBAZEPINE 300MG TABLET PO SCH ×3 (05:16→21:08)
[2020-12-16] MEDS: SODIUM CHLORIDE 0.9% INJ 3ML FLUSH IVF SCH ×3 (05:17→21:09)
[2020-12-16] MEDS: ENOXAPARIN 40MG/0.4ML SYR SUBCUT SCH (10:34)
[2020-12-16] MEDS: LOSARTAN POTASSIUM 100 MG TABLET PO SCH (10:35)
[2020-12-16] MEDS: DICLOFENAC SODIUM 50 MG DR TABLET PO SCH ×2 (10:35→16:50)
[2020-12-16] MEDS: TAMSULOSIN HCL 0.4MG SR CAPSULE PO SCH (10:36)
[2020-12-16] MEDS: SODIUM CHLORIDE 0.45% 1,000 ML IV SCH (16:51)
[2020-12-17] VITALS: BP 136/91
[2020-12-17 04:00] VITALS: BP 117/81
[2020-12-17] MEDS: MEROPENEM 1,000 MG in SODIUM CHLORIDE 0.9% 100 ML IV SCH ×3 (05:05→20:16)
[2020-12-17] MEDS: OXCARBAZEPINE 300MG TABLET PO SCH ×3 (05:06→20:17)
[2020-12-17] MEDS: SODIUM CHLORIDE 0.9% INJ 3ML FLUSH IVF SCH ×3 (05:06→20:20)
[2020-12-17 08:00] VITALS: BP 126/90
[2020-12-17] MEDS: DICLOFENAC SODIUM 50 MG DR TABLET PO SCH ×2 (08:59→17:54)
[2020-12-17] MEDS: ENOXAPARIN 40MG/0.4ML SYR SUBCUT SCH (08:59)
[2020-12-17] MEDS: LOSARTAN POTASSIUM 100 MG TABLET PO SCH (08:59)
[2020-12-17] MEDS: TAMSULOSIN HCL 0.4MG SR CAPSULE PO SCH (08:59)
[2020-12-17 12:05] VITALS: BP 124/80
[2020-12-17] MEDS: SODIUM CHLORIDE 0.45% 1,000 ML IV SCH (13:46)
[2020-12-17 16:24] VITALS: BP 125/81
[2020-12-17 20:00] VITALS: BP 127/84
[2020-12-18] VITALS (7 sets, daily range): BP systolic 103–167; BP diastolic 60–85
[2020-12-18] MEDS: OXCARBAZEPINE 300MG TABLET PO SCH ×3 (06:40→21:13)
[2020-12-18] MEDS: MEROPENEM 1,000 MG in SODIUM CHLORIDE 0.9% 100 ML IV SCH (06:41)
[2020-12-18] MEDS: SODIUM CHLORIDE 0.9% INJ 3ML FLUSH IVF SCH ×3 (06:45→21:13)
[2020-12-18] MEDS: ENOXAPARIN 40MG/0.4ML SYR SUBCUT SCH (08:08)
[2020-12-18] MEDS: TAMSULOSIN HCL 0.4MG SR CAPSULE PO SCH (08:09)
[2020-12-18] MEDS: DICLOFENAC SODIUM 50 MG DR TABLET PO SCH ×2 (08:10→18:30)
[2020-12-18] MEDS: LOSARTAN POTASSIUM 100 MG TABLET PO SCH (08:10)
[2020-12-18] MEDS: SODIUM CHLORIDE 0.45% 1,000 ML IV SCH (10:51)
[2020-12-18] MEDS: NITROFURANTOIN 100MG M/M CAPSULE PO SCH ×2 (10:51→21:13)
== END 2020-12-19 00:05 | DRG 682 ==
LOC: ER 03:17 → MICUSO 05:56 → EDBEDREQ 06:01 → EDBEDREQTM 06:01 → 6WST 22:33
PROVIDERS: ADMIT Internal Medicine; ATTEND Internal Medicine
DX: N17.0 Acute kidney failure with tubular necrosis (principal); L89.323 Pressure ulcer of left buttock, stage 3; R65.11 Systemic inflammatory response syndrome (SIRS) of non-infectious origin with acute organ dysfunction; G82.20 Paraplegia, unspecified; N13.30 Unspecified hydronephrosis; I10 Essential (primary) hypertension; E11.9 Type 2 diabetes mellitus without complications; E78.00 Pure hypercholesterolemia, unspecified; F17.210 Nicotine dependence, cigarettes, uncomplicated; M06.9 Rheumatoid arthritis, unspecified; N31.9 Neuromuscular dysfunction of bladder, unspecified; F10.20 Alcohol dependence, uncomplicated; L89.90 Pressure ulcer of unspecified site, unspecified stage; L89.320 Pressure ulcer of left buttock, unstageable; Z99.3 Dependence on wheelchair; Z82.49 Family history of ischemic heart disease and other diseases of the circulatory system; Z79.899 Other long term (current) drug therapy
CPT/HCPCS: 36415; 71045; 74176; 80048; 80053; 80320; 81003; 82040; 83605; 84134; 84145; 84443; 85025; 87077; 87186; 87426; 93970; 99291; C1893; J1650; J2185; J2543; J3370; J7030; J7050; J7060; G0480

== ENCOUNTER 2021-03-06 03:01 | Inpatient (IN) | payer MEDICARE, MEDICAID ==
[~2021-03-06] VITALS: Ht 170.2 cm; Wt 66.2 kg
[~2021-03-06 03:01] MED LIST changes: -ATOR10TA69 PO; -BACL-141 PO; -DICL100T2 PO; +DICL50TA7 PO; -FURO-152 PO; +LOSA100T32 PO; -NICO1PAT15 TP; -NITR100C MT; -SILV20CR13 TP
[2021-03-06] MEDS ORDERED: SODIUM CHLORIDE 0.9% 1,000 ML IV ONE (03:30)
[2021-03-06 04:17] LABS: BASOPHILS % 1.1 % (0.0-2.0); EOSINOPHILS % 5.9 % (0.0-5.0); HEMATOCRIT. 40.7 % (42.0-52.0); HEMOGLOBIN. 13.2 g/dL (14.0-18.0); LYMPHOCYTES % 34.1 % (20.0-50.0); MEAN CORPUSCULAR HEMOGLOBIN 27.5 pg (28.0-32.0); MEAN CORPUSCULAR VOLUME 84.7 fL (80.0-94.0); MEAN PLATELET VOLUME 6.7 fl (7.4-10.4); MONOCYTES % 8.3 % (2.0-8.0); NEUTROPHILS % 50.6 % (40.0-76.0); PLATELET 394 x1000/uL (130-400); RED BLOOD CELL COUNT 4.81 mill/uL (4.7-6.1); RED CELL DISTRIBUTION WIDTH 15.2 % (11.6-14.6)
[2021-03-06 04:23] LABS: CHLORIDE 108 mEq/L (98-107)
[2021-03-06 04:43] LABS: CLARITY URINE CLEAR (CLEAR); COLOR URINE YELLOW (YELLOW); KETONES URINE NEGATIVE (NEGATIVE); LEUKOCYTE ESTERASE URINE 3+ (NEGATIVE); NITRITE URINE NEGATIVE (NEGATIVE); OCCULT BLOOD URINE TRACE (NEGATIVE); PROTEIN URINE TRACE (NEGATIVE); SPECIFIC GRAVITY URINE 1.012 (1.005-1.030); UROBILINOGEN URINE 0.2 E.U./dL (0.2-1.0)
[2021-03-06] MEDS ORDERED: INSULIN REGULAR (HUMULIN R) 300UNITS/3ML VIAL IV ONE (05:15)
[2021-03-06] MEDS ORDERED: SODIUM BICARBONATE 8.4% 1 MEQ/ML 50ML SYR IV ONE (05:15)
[2021-03-06] MEDS ORDERED: DEXTROSE 50% WATER 50ML SYRINGE IV ONE (05:15)
[2021-03-06] MEDS ORDERED: IPRATROPIUM/ALBUTEROL 0.5-3(2.5)MG/3ML NEB HHN PRN (10:15)
[2021-03-06] MEDS ORDERED: MAGNESIUM/ALUMINUM HYDROXIDE/SIMETHICONE 30ML UDC PO PRN (10:15)
[2021-03-06] MEDS ORDERED: CEFTRIAXONE 1 G PREMIX 50 ML IV SCH (10:15)
[2021-03-06] MEDS ORDERED: ONDANSETRON HCL 4MG/2ML INJ IV PRN (10:15)
[2021-03-06] MEDS ORDERED: DOCUSATE SODIUM 100MG CAPSULE PO PRN (10:15)
[2021-03-06] MEDS ORDERED: CLONIDINE 0.1MG TABLET PO PRN (10:15)
[2021-03-06] MEDS ORDERED: ACETAMINOPHEN 325MG TABLET PO PRN (10:15)
[2021-03-06] MEDS ORDERED: NALOXONE HCL 0.4MG/ML VIAL IV PRN (10:45)
[2021-03-06 11:32] VITALS: BP 153/96
[2021-03-06] MEDS: ENOXAPARIN 40MG/0.4ML SYR SUBCUT SCH (11:53)
[2021-03-06] MEDS: CEFTRIAXONE 1,000 MG in DEXTROSE 5% WATER 50 ML IV SCH (11:53)
[2021-03-06] MEDS: PANTOPRAZOLE SODIUM 40 MG/VIAL IV SCH (11:53)
[2021-03-06] MEDS: SODIUM CHLORIDE 0.9% 1,000 ML IV SCH ×2 (11:54→23:27)
[2021-03-06 12:00] VITALS: BP 153/96
[2021-03-06 12:05] LABS: CHLORIDE 111 mEq/L (98-107)
[2021-03-06 12:49] LABS: CLARITY URINE CLEAR (CLEAR); COLOR URINE YELLOW (YELLOW); KETONES URINE TRACE (NEGATIVE); LEUKOCYTE ESTERASE URINE 3+ (NEGATIVE); NITRITE URINE NEGATIVE (NEGATIVE); OCCULT BLOOD URINE TRACE (NEGATIVE); PH URINE 6.5 (4.5-8.0); PROTEIN URINE TRACE (NEGATIVE); SPECIFIC GRAVITY URINE 1.012 (1.005-1.030); UROBILINOGEN URINE 0.2 E.U./dL (0.2-1.0)
[2021-03-06 16:00] VITALS: BP 154/70
[2021-03-06 20:00] VITALS: BP 149/88
[2021-03-06 23:35] VITALS: BP 116/83
[2021-03-07 04:00] VITALS: BP 133/97
[2021-03-07] MEDS: ENOXAPARIN 40MG/0.4ML SYR SUBCUT SCH (11:05)
[2021-03-07] MEDS: CEFTRIAXONE 1,000 MG in DEXTROSE 5% WATER 50 ML IV SCH (11:05)
[2021-03-07] MEDS: PANTOPRAZOLE SODIUM 40 MG/VIAL IV SCH (11:05)
[2021-03-07 12:00] VITALS: BP 130/92
[2021-03-07 16:00] VITALS: BP 135/90
[2021-03-07 16:03] LABS: BASOPHILS % 0.6 % (0.0-2.0); EOSINOPHILS % 4.6 % (0.0-5.0); HEMATOCRIT. 39.1 % (42.0-52.0); HEMOGLOBIN. 12.4 g/dL (14.0-18.0); LYMPHOCYTES % 26.9 % (20.0-50.0); MEAN CORPUSCULAR HEMOGLOBIN 27.2 pg (28.0-32.0); MEAN PLATELET VOLUME 7.1 fl (7.4-10.4); MONOCYTES % 9.2 % (2.0-8.0); NEUTROPHILS % 58.7 % (40.0-76.0); PLATELET 372 x1000/uL (130-400); RED BLOOD CELL COUNT 4.55 mill/uL (4.7-6.1); RED CELL DISTRIBUTION WIDTH 15.1 % (11.6-14.6)
[2021-03-07 16:10] LABS: CHLORIDE 111 mEq/L (98-107)
[2021-03-07 16:15] LABS: PHOSPHORUS 2.8 mg/dL (2.5-4.9)
[2021-03-07 16:17] LABS: LDL CHOLESTEROL 66 mg/dL (5-100)
[2021-03-07 16:18] LABS: HDL CHOLESTEROL 40 mg/dL (40-59)
[2021-03-07 16:19] LABS: T4 FREE 0.96 ng/dL (0.76-1.46)
[2021-03-07 20:00] VITALS: BP 116/80
[2021-03-07] MEDS: HYDROCODONE/ACETAMINOPHEN 5/325MG TABLET PO PRN (20:15)
[2021-03-08] VITALS (7 sets, daily range): BP systolic 119–140; BP diastolic 73–96
[2021-03-08] MEDS: SODIUM CHLORIDE 0.9% 1,000 ML IV SCH ×2 (02:30→16:56)
[2021-03-08 07:42] LABS: BASOPHILS % 0.6 % (0.0-2.0); EOSINOPHILS % 5.1 % (0.0-5.0); HEMATOCRIT. 35.3 % (42.0-52.0); HEMOGLOBIN. 11.7 g/dL (14.0-18.0); LYMPHOCYTES % 30.1 % (20.0-50.0); MEAN CORPUSCULAR HEMOGLOBIN 27.8 pg (28.0-32.0); MEAN CORPUSCULAR VOLUME 83.9 fL (80.0-94.0); MEAN PLATELET VOLUME 7.3 fl (7.4-10.4); MONOCYTES % 9.8 % (2.0-8.0); NEUTROPHILS % 54.4 % (40.0-76.0); PLATELET 371 x1000/uL (130-400); RED BLOOD CELL COUNT 4.21 mill/uL (4.7-6.1); RED CELL DISTRIBUTION WIDTH 14.7 % (11.6-14.6)
[2021-03-08 07:47] LABS: CHLORIDE 111 mEq/L (98-107)
[2021-03-08] MEDS: FAMOTIDINE 20MG/2ML VIAL IV SCH ×2 (08:52→22:10)
[2021-03-08] MEDS: ENOXAPARIN 40MG/0.4ML SYR SUBCUT SCH (11:14)
[2021-03-08] MEDS: CEFTRIAXONE 1,000 MG in DEXTROSE 5% WATER 50 ML IV SCH (11:15)
[2021-03-08] MEDS: HYDROCODONE/ACETAMINOPHEN 5/325MG TABLET PO PRN (18:12)
[2021-03-09 04:00] VITALS: BP 142/90
[2021-03-09] MEDS: SODIUM CHLORIDE 0.9% 1,000 ML IV SCH ×2 (05:10→18:30)
[2021-03-09 08:00] VITALS: BP 136/89
[2021-03-09] MEDS: FAMOTIDINE 20MG/2ML VIAL IV SCH (08:53)
[2021-03-09] MEDS ORDERED: SULF-292 MT (09:09)
[2021-03-09 12:00] VITALS: BP 146/90
[2021-03-09] MEDS: ENOXAPARIN 40MG/0.4ML SYR SUBCUT SCH (12:15)
[2021-03-09] MEDS: CEFTRIAXONE 1,000 MG in DEXTROSE 5% WATER 50 ML IV SCH (12:15)
[2021-03-09 15:43] VITALS: BP 146/90
== END 2021-03-09 23:10 | disposition home or self-care (01) | DRG 690 ==
LOC: ER 03:01 → 8WST 05:04 → ENRESERV 07:15
PROVIDERS: ADMIT Internal Medicine; ATTEND Internal Medicine
DX: N13.6 Pyonephrosis (principal); G82.20 Paraplegia, unspecified; N31.9 Neuromuscular dysfunction of bladder, unspecified; E11.9 Type 2 diabetes mellitus without complications; I10 Essential (primary) hypertension; E87.5 Hyperkalemia; Z20.822 Contact with and (suspected) exposure to COVID-19; L89.90 Pressure ulcer of unspecified site, unspecified stage; N39.41 Urge incontinence; Z79.899 Other long term (current) drug therapy; Z82.49 Family history of ischemic heart disease and other diseases of the circulatory system; Z99.3 Dependence on wheelchair
CPT/HCPCS: 36415; 71045; 74176; 76770; 80048; 80053; 80061; 81003; 83605; 83735; 84100; 84145; 84439; 84443; 85025; 87077; 87186; 87426; 93005; 93970; 97165; 99285; C1893; C9113; J0696; J1650; J1815; J3490; J7030; J7040; J7060

== ENCOUNTER 2021-03-19 19:55 | Inpatient (IN) | payer MEDICARE, MEDICAID ==
[~2021-03-19] VITALS: Ht 170.2 cm; Wt 81.6 kg
[~2021-03-19 19:55] MED LIST changes: +SULF-292 MT
[2021-03-19 22:08] LABS: BASOPHILS % 0.6 % (0.0-2.0); EOSINOPHILS % 3.8 % (0.0-5.0); HEMATOCRIT. 39.4 % (42.0-52.0); MEAN CORPUSCULAR HEMOGLOBIN 27.3 pg (28.0-32.0); MEAN CORPUSCULAR VOLUME 82.6 fL (80.0-94.0); MEAN PLATELET VOLUME 6.5 fl (7.4-10.4); MONOCYTES % 6.4 % (2.0-8.0); NEUTROPHILS % 58.2 % (40.0-76.0); PLATELET 444 x1000/uL (130-400); RED BLOOD CELL COUNT 4.77 mill/uL (4.7-6.1); RED CELL DISTRIBUTION WIDTH 15.2 % (11.6-14.6)
[2021-03-19 22:14] LABS: CHLORIDE 108 mEq/L (98-107)
[2021-03-19] MEDS ORDERED: MORPHINE SULFATE 4 MG/ML CPJ (NOT FOR IM USE) IV STA (23:44)
[2021-03-19] MEDS ORDERED: ONDANSETRON HCL 4MG/2ML INJ IV STA (23:44)
[2021-03-20 00:17] LABS: CLARITY URINE CLOUDY (CLEAR); COLOR URINE YELLOW (YELLOW); KETONES URINE NEGATIVE (NEGATIVE); LEUKOCYTE ESTERASE URINE 3+ (NEGATIVE); NITRITE URINE POSITIVE (NEGATIVE); OCCULT BLOOD URINE 1+ (NEGATIVE); PH URINE 5.5 (4.5-8.0); PROTEIN URINE 1+ (NEGATIVE); SPECIFIC GRAVITY URINE 1.008 (1.005-1.030); UROBILINOGEN URINE 0.2 E.U./dL (0.2-1.0)
[2021-03-20] MEDS ORDERED: CEFTRIAXONE 1 G PREMIX 50 ML IV ONE (00:45)
[2021-03-20 02:00] VITALS: BP 110/66
[2021-03-20] MEDS ORDERED: ATOR40TA70 MT (02:36)
[2021-03-20] MEDS ORDERED: OXYB5TAB17 MT (02:36)
[2021-03-20 03:31] VITALS: BP 110/66
[2021-03-20] MEDS: PIPERACILLIN/TAZOBACTAM 3.375 G in DEXTROSE 5% WATER 50 ML IV SCH ×3 (05:17→22:18)
[2021-03-20 08:02] LABS: BASOPHILS % 0.6 % (0.0-2.0); EOSINOPHILS % 4.1 % (0.0-5.0); HEMATOCRIT. 38.4 % (42.0-52.0); HEMOGLOBIN. 12.5 g/dL (14.0-18.0); MEAN CORPUSCULAR HEMOGLOBIN 27.4 pg (28.0-32.0); MEAN PLATELET VOLUME 6.9 fl (7.4-10.4); MONOCYTES % 7.5 % (2.0-8.0); NEUTROPHILS % 60.8 % (40.0-76.0); PLATELET 409 x1000/uL (130-400); RED BLOOD CELL COUNT 4.57 mill/uL (4.7-6.1); RED CELL DISTRIBUTION WIDTH 15.5 % (11.6-14.6)
[2021-03-20 08:31] LABS: CHLORIDE 107 mEq/L (98-107)
[2021-03-20] MEDS ORDERED: ONDANSETRON HCL 4MG/2ML INJ IV PRN (09:15)
[2021-03-20] MEDS ORDERED: ACETAMINOPHEN 325MG TABLET PO PRN (09:15)
[2021-03-20 20:00] VITALS: BP 94/55
[2021-03-20] MEDS ORDERED: HYDROCODONE/ACETAMINOPHEN 10/325MG TABLET PO PRN (20:15)
[2021-03-21] VITALS: BP 96/49
[2021-03-21 04:00] VITALS: BP 94/48
[2021-03-21] MEDS: PIPERACILLIN/TAZOBACTAM 3.375 G in DEXTROSE 5% WATER 50 ML IV SCH ×3 (06:23→22:23)
[2021-03-21 08:00] VITALS: BP 114/71
[2021-03-21 12:00] VITALS: BP 115/83
[2021-03-21 16:00] VITALS: BP 136/77
[2021-03-21 20:00] VITALS: BP 114/77
[2021-03-22] VITALS: BP 116/74
[2021-03-22 04:00] VITALS: BP 114/78
[2021-03-22] MEDS: PIPERACILLIN/TAZOBACTAM 3.375 G in DEXTROSE 5% WATER 50 ML IV SCH (05:45)
[2021-03-22 06:42] VITALS: BP 114/78
[2021-03-22 08:00] VITALS: BP 134/91
== END 2021-03-22 10:30 | disposition home health service (06) | DRG 690 ==
LOC: ER 19:55 → 6EST 03-20 00:32 → ENRESERV 03-20 01:26
PROVIDERS: ADMIT Internal Medicine; ATTEND Internal Medicine
DX: N39.0 Urinary tract infection, site not specified (principal); G82.20 Paraplegia, unspecified; E87.8 Other disorders of electrolyte and fluid balance, not elsewhere classified; D64.9 Anemia, unspecified; Z20.822 Contact with and (suspected) exposure to COVID-19; L89.151 Pressure ulcer of sacral region, stage 1; I10 Essential (primary) hypertension; M19.90 Unspecified osteoarthritis, unspecified site; Z99.3 Dependence on wheelchair; Z87.440 Personal history of urinary (tract) infections; Z82.49 Family history of ischemic heart disease and other diseases of the circulatory system; Z79.899 Other long term (current) drug therapy
CPT/HCPCS: 36415; 80048; 80053; 81003; 83605; 85025; 87426; 99285; J0696; J2270; J2405; J2543; J7040; J7060

== ENCOUNTER 2021-11-07 11:33 | Emergency (ER) | payer MEDICARE, MEDICAID ==
[~2021-11-07] VITALS: Ht 177.8 cm; Wt 70.0 kg
[~2021-11-07 11:33] MED LIST changes: +AMIT10TA6 MT; +ATOR40TA70 MT; +CHOL400D7 MT; +CYCL5TAB MT; +FOLI-43 MT; +HYDR12.54 MT; +NICO-786 TD; +SILV50CR31 TP; -SULF-292 MT; +TADA5TAB MT; -TAMS0.4C31 PO; +THIA100T72 MT; +VARE1TAB21 MT; +ZINC220C6
[2021-11-07 12:39] LABS: BASOPHILS % 0.2 % (0.0-2.0); EOSINOPHILS % 0.1 % (0.0-5.0); HEMATOCRIT. 32.9 % (42.0-52.0); HEMOGLOBIN. 10.3 g/dL (14.0-18.0); LYMPHOCYTES % 7.4 % (20.0-50.0); MEAN CORPUSCULAR HEMOGLOBIN 25.6 pg (28.0-32.0); MEAN CORPUSCULAR VOLUME 82.3 fL (80.0-94.0); MEAN PLATELET VOLUME 6.6 fl (7.4-10.4); MONOCYTES % 5.6 % (2.0-8.0); NEUTROPHILS % 86.7 % (40.0-76.0); PLATELET 358 x1000/uL (130-400); RED CELL DISTRIBUTION WIDTH 23.9 % (11.6-14.6)
[2021-11-07 12:45] LABS: CHLORIDE 103 mEq/L (98-107)
[2021-11-07 12:55] LABS: ETHANOL BLOOD 203 mg/dL
[2021-11-07 13:44] LABS: PLATELET ESTIMATE NORMAL
[2021-11-07 18:36] VITALS: BP 102/64
== END 2021-11-07 18:38 | disposition home or self-care (01) ==
LOC: ER 11:33
DX: G93.40 Encephalopathy, unspecified (principal); T51.0X1A Toxic effect of ethanol, accidental (unintentional), initial encounter; Y92.89 Other specified places as the place of occurrence of the external cause; I10 Essential (primary) hypertension; F12.10 Cannabis abuse, uncomplicated; F15.10 Other stimulant abuse, uncomplicated; Z20.822 Contact with and (suspected) exposure to COVID-19
CPT/HCPCS: 36415; 71045; 80053; 80320; 85025; 87426; 93005; 99285; C9803; G0480

== ENCOUNTER 2022-01-10 09:54 | Emergency (ER) | payer MEDICARE, MEDICAID ==
[~2022-01-10] VITALS: Ht 182.9 cm; Wt 66.0 kg
[2022-01-10] MEDS ORDERED: IBUPROFEN 600MG TABLET PO ONE (10:15)
[2022-01-10 11:01] VITALS: BP 141/91
[2022-01-10] MEDS ORDERED: MAGNESIUM/ALUMINUM HYDROXIDE/SIMETHICONE 30ML UDC PO ONE (12:00)
== END 2022-01-10 12:25 | disposition home or self-care (01) ==
LOC: ER 09:54
DX: R51.9 Headache, unspecified (principal); I10 Essential (primary) hypertension; F12.10 Cannabis abuse, uncomplicated; F15.10 Other stimulant abuse, uncomplicated; Z79.899 Other long term (current) drug therapy
CPT/HCPCS: 99284